=== PATIENT | male | born 2000 | race Caucasian/White ===

== ENCOUNTER 2018-06-06 09:30 | Emergency (ER) | payer OTHER ==
[2018-06-06] MEDS ORDERED: ONDANSETRON DISINTEGRATING 4 MG TAB PO ONE (10:34)
--- NOTE | 2018-06-06 10:38 | EDPHY ---
H & P Time Seen by Provider: 06/06/18 10:27 HPI/ROS: CHIEF COMPLAINT: Nausea post initiation of Tamiflu HISTORY OF PRESENT ILLNESS: 17-year-old immunocompetent male with no seasonal influenza vaccination complaining of 4 days of flu-like symptoms. He was seen at [facility] yesterday had positive influenza testing and started on Tamiflu. This morning he complained of nausea and had 1 episode of emesis with red appearance. No abdominal pain. He is also continuing to complain of fever and chills which are relieved with 40 mg of Motrin. He denies: Abdominal pain , headache, nuchal rigidity, otalgia [PRIMARY CARE PROVIDER:][ ] REVIEW OF SYSTEMS: [10 systems reviewed and negative with the exception of the elements mentioned in the history of present illness] [PAST MEDICAL & SURGICAL HISTORY:] [ no seasonal influenza vaccination ] SOCIAL HISTORY:[ Student nonsmoker ] PHYSICAL EXAM (Prior to examination, patient consented to physical exam, hands were washed and my usual and customary physical exam procedures followed) 1) GENERAL: [Well-developed, well-nourished, alert and oriented. Appears to be in no acute distress.] 2) HEAD: [Normocephalic, atraumatic] 3) HEENT: [Pupils equal, round, reactive to light bilaterally. Sclera anicteric. ] Oropharynx: No tonsillar enlargement or exudate. Moist mucous membranes. [Ears bilaterally with normal tympanic membranes.] No evidence of otitis media or otitis externa 4) NECK: [Full range of motion, no meningeal signs.] 5) LUNGS: [Clear auscultation bilaterally, no wheezes, no rhonchi, no retractions.] 6) HEART: [Regular rate and rhythm, no murmur, no heave, no gallop.] 7) ABDOMEN: [No guarding, no rebound, no focal tenderness, negative McBurney's, negative Combs's, negative Rovsing's, negative peritoneal sign], 8) MUSCULOSKELETAL: [Moving all extremities, no focal areas of tenderness, no obvious trauma. No peripheral edema or discoloration.] 9) BACK: [No CVA tenderness, no midline vertebral tenderness, no fluctuance, no step-off, no obvious trauma, no visual or palpable abnormality.] 10) SKIN: [No rash, no petechiae.] [11) Psychiatric: Patient is oriented X 3, there is no agitation.] DIFFERENTIAL DIAGNOSIS: [In no particular include but limited to pneumonia, bronchitis, meningitis ] Smoking Status: Never smoked Constitutional: Initial Vital Signs Temperature (C) 37.4 C 06/06/18 10:05 Heart Rate 92 06/06/18 10:05 Respiratory Rate 16 06/06/18 10:05 Blood Pressure 100/66 06/06/18 10:05 O2 Sat (%) 97 06/06/18 10:05 O2 Delivery Mode Room Air Allergies/Adverse Reactions: No Known Allergies Allergy (Unverified 06/06/18 10:04) Home Medications: Medication Instructions Recorded Motrin (*) 06/06/18 Ondansetron Odt [Zofran Odt] 4 mg PO Q4PRN PRN #10 tab 06/06/18 Tamiflu 06/06/18 Tylenol 06/06/18 MDM/Departure - [facility] ED Course/Re-evaluation: Doubt meningitis. The patient appears well with no evidence of hypovolemia or volume depletion. Do not think that parental fluids are indicated at this time. Primary complaint is nausea. This may be related to his recent Tamiflu. I think the patient can be treated on outpatient basis with oral antiemetic. Also recommended and discussed with patient Tylenol and Motrin dosing for fever and pain control and recommend avoiding classes, given a school note. At this time I do not think that diagnostic studies indicated. Patient feels comfortable being discharged. All questions and concerns addressed by myself. Patient given my usual and customary discharge precautions and instructions regarding their clinical impression. Care of patient under supervision of secondary supervising physician Dr Zuñiga . - Depart Disposition: Home, Routine, Self-Care Clinical Impression: Nausea, Influenza A Condition: Good Instructions: Acute Nausea and Vomiting (ED), Influenza (ED) Additional Instructions: Return to the ER if you develop shortness of breath, abdominal pain, inability to tolerate oral intake or any other symptoms that concern you. Stand Alone Forms: School Excuse Prescriptions: Ondansetron Odt [Zofran Odt] 4 mg PO Q4PRN PRN #10 tab PRN Reason: Nausea Referrals: [facility],. [Clinic] - 2-3 days, call for appt.
[2018-06-06 11:24] VITALS: BP 109/69
== END 2018-06-06 11:20 | disposition home or self-care (01) ==
DX: R11.2 Nausea with vomiting, unspecified (principal); J10.1 Influenza due to other identified influenza virus with other respiratory manifestations; Z79.2 Long term (current) use of antibiotics

== ENCOUNTER 2018-06-08 07:59 | Emergency (ER) | payer OTHER | END 2018-06-08 08:34 | disposition home or self-care (01) ==